=== PATIENT | female | born 1985 | race American Indian/Alaskan Native ===

== ENCOUNTER 2021-08-03 06:45 | Day surgery (SDC) | payer OTHER ==
[2021-08-02 12:22] LABS: Hematocrit 41.2 % (30.3-42.9); Hemoglobin 13.2 gm/dl (10.1-14.3); Mean Corpuscular HGB Conc 32 % (30-34); Mean Corpuscular Volume 88 fl (79-97); Platelet Count 272 K/mm3 (140-440); Red Blood Count 4.69 M/mm3 (3.65-5.03); Red Cell Distribution Width 14.2 % (13.2-15.2)
[2021-08-02 12:47] LABS: Alanine Aminotransferase 28 units/L (7-56); Albumin 4.1 g/dL (3.9-5); Blood Urea Nitrogen 10 mg/dL (7-17); Calcium 9.6 mg/dL (8.4-10.2); Hemolysis Index 2
[2021-08-02 12:49] LABS: BUN/Creatinine Ratio 17
--- NOTE | 2021-08-02 12:56 | Anesthesia Consultation ---
Anesthesia Consult and Med Hx Date of service: 08/03/21 - Airway Anesthetic Teeth Evaluation: Good ROM Head & Neck: Adequate Mental/Hyoid Distance: Adequate Mallampati Class: Class II Intubation Access Assessment: Good - Pre-Operative Health Status ASA Pre-Surgery Classification: ASA1 Proposed Anesthetic Plan: General - Pulmonary Hx Smoking: No Hx Sleep Apnea: No (ERIN PRE SCREEN LOW RISK) - Cardiovascular System Hx Hypertension: No - Central Nervous System Hx Psychiatric Problems: No - Gastrointestinal Hx Gastroesophageal Reflux Disease: No - Hematic Hx Anemia: No Hx Sickle Cell Disease: No - Other Systems Hx Cancer: No Hx Obesity: Yes
[~2021-08-03 06:45] MED LIST: ACETAMINOPHEN 500 MG TAB PO NR; CELECOXIB 200 MG CAP PO NR; GABAPENTIN 300 MG CAP PO NR; LACTATED RINGERS 1,000 ML IV SCH; MAGNESIUM OXIDE 400 MG TAB PO NR; MIDAZOLAM 2 MG/2 ML INJ IV NR; WATER FOR IRRIG STERILE 2000 ML IR ONE
[2021-08-03] MEDS ORDERED: ACETAMINOPHEN 325 MG/10.15 ML ORAL LIQD UNIT DOSE ONE (07:40)
[2021-08-03] MEDS ORDERED: GABAPENTIN 500 MG/10 ML ORAL LIQD ONE (07:41)
[2021-08-03] MEDS ORDERED: ONDANSETRON 4 MG/2 ML INJ IV PRN (07:42)
[2021-08-03] MEDS ORDERED: HYDROmorphone 1 MG/1 ML INJ IV PRN ×2 (07:42)
--- NOTE | 2021-08-03 07:42 | Anesthesia Day of Surgery ---
Anesthesia Day of Surgery - Day of Surgery Patient Examined: Yes Patient H&P Reviewed: Yes Patient is NPO: Yes
[2021-08-03] MEDS ORDERED: ceFAZolin/Water 2 GM/20 ML 2 GM/20 ML SYRINGE IV ONE (07:59)
[2021-08-03] MEDS ORDERED: ACETAMINOPHEN 325 MG/10.15 ML ORAL LIQD UNIT DOSE PO NR (08:00)
[2021-08-03] MEDS ORDERED: GABAPENTIN 500 MG/10 ML ORAL LIQD PO SCH (08:00)
[2021-08-03] MEDS ORDERED: HYDROmorphone 1 MG/1 ML INJ ONE (08:53)
[2021-08-03] MEDS ORDERED: LIDOCAINE MPF (2%) 20 MG/1 ML VIAL 5 ML ONE (08:53)
[2021-08-03] MEDS ORDERED: ONDANSETRON 4 MG/2 ML INJ ONE ×2 (08:53→11:35)
[2021-08-03] MEDS ORDERED: dexAMETHasone 20 MG/5 ML VIAL ONE (08:53)
[2021-08-03] MEDS ORDERED: propofoL 200 MG/20 ML VIAL IV ONE (08:54)
[2021-08-03] MEDS ORDERED: ceFAZolin/Water 2 GM/20 ML 2 GM/20 ML SYRINGE IV NR (09:00)
[2021-08-03] MEDS ORDERED: SODIUM CHLORIDE 0.9% 250ML 250 ML ONE (09:22)
[2021-08-03] MEDS ORDERED: NEOMY 40 MG/POLYMYXIN B 200,000 UNITS/ML (GU) AMPULE IR ONE (09:23)
[2021-08-03] MEDS ORDERED: VASOPRESSIN 20 UNIT/1 ML INJ ONE (09:23)
--- NOTE | 2021-08-03 10:18 | Short Stay Summary ---
Short Stay Documentation Date of service: 08/03/21 - History H&P: obtained from office - Allergies and Medications Current Medications: Allergies No Known Allergies Allergy (Verified 07/28/21 09:22) Home Medications Medication Instructions Recorded Confirmed Last Taken Type Control Pills 1 tab PO DAILY 07/28/21 08/03/21 08/03/21 06:02 History Active Medications Acetaminophen (Acetaminophen 325 Mg/10.15 Ml Oral Liqd Unit Dose) 975 mg PO PREOP NR Stop: 08/03/21 20:00 Last Admin: 08/03/21 07:42 Dose: 975 mg Celecoxib (Celecoxib 200 Mg Cap) 400 mg PO PREOP NR Stop: 08/03/21 20:00 Gabapentin (Gabapentin 500 Mg/10 Ml Oral Liqd) 300 mg PO PREOP MERRITT Stop: 08/03/21 12:00 Last Admin: 08/03/21 07:42 Dose: 300 mg Hydromorphone HCl (Hydromorphone 1 Mg/1 Ml Inj) 0.25 mg IV Q10MIN PRN PRN Reason: Pain, Moderate (4-6) Stop: 08/03/21 20:00 Hydromorphone HCl (Hydromorphone 1 Mg/1 Ml Inj) 0.5 mg IV Q10MIN PRN PRN Reason: Pain , Severe (7-10) Stop: 08/03/21 20:00 Lactated Ringer's (Lactated Ringers) 1,000 mls @ 125 mls/hr IV DIRECT MERRITT Last Admin: 08/03/21 07:30 Dose: 125 mls/hr Magnesium Oxide (Magnesium Oxide 400 Mg Tab) 400 mg PO ONCE NR Stop: 08/03/21 20:00 Midazolam HCl (Midazolam 2 Mg/2 Ml Inj) 2 mg IV PREOP NR Stop: 08/03/21 23:59 Last Admin: 08/03/21 08:31 Dose: 2 mg - Brief post op/procedure progress note Date of procedure: 08/03/21 Pre-op diagnosis: manny Post-op diagnosis: same Procedure: cysto, sling (TVT) Anesthesia: GETA Surgeon: SHAWN CARRION Estimated blood loss: minimal Pathology: none Specimen disposition: to lab Condition: stable - Hospital course Hospital course: bactrim & jessica on chart - Disposition Condition at discharge: Stable Disposition: 01 HOME / SELF CARE / HOMELESS Short Stay Discharge Plan Follow up with: JASMEET DOS SANTOS [Other] - 7 Days
--- NOTE | 2021-08-03 11:42 | Operative Report ---
DATE OF SURGERY: 08/03/2021 PREOPERATIVE DIAGNOSIS: Stress urinary incontinence. POSTOPERATIVE DIAGNOSIS: Stress urinary incontinence. PROCEDURES: Cystoscopy, pubovaginal sling (TVT). SURGEON: Oskar Morales MD ANESTHESIA: General. ESTIMATED BLOOD LOSS: Minimal. FLUIDS: Crystalloid. COMPLICATIONS: No complications. INDICATIONS: This patient is a 36-year-old female seen in the office for persistent stress urinary incontinence for 2 years. The patient has 2 kids delivered vaginally. She wears 4 pads a day, Kegel's, trial of several medications including Ditropan, Myrbetriq, and Gemtesa, continued to have incontinence. Urodynamic testing, peak flow 22 mL a second with stress incontinence and muscle weakness. Discussed options, risks, benefits, complications were explained. The patient agreed to proceed with surgical intervention. DESCRIPTION OF PROCEDURE: The patient was taken to the operative suite, placed in a supine position. After adequate general anesthesia, she was then placed in the dorsal lithotomy position, prepped and draped in a sterile fashion. She was placed in the dorsal lithotomy position, did not have a significant cystocele. Quinonez catheter was placed. Karmen-colored urine returned, midline anterior vaginal wall incision was made, lateral flaps were created. The finger dissection posteriorly the pubic rami up to the rectus fascia could be appreciated. Then, using the TVT tape and a trocar, the tape was brought from the vaginal area onto the suprapubic area, a small incision was made bilaterally to allow the trocar to advance into the suprapubic area. Cystoscopy was performed. No bladder injury could be appreciated. With gentle tension, the TVT tape was deployed. Redundant tape was cut suprapubically. The 2-0 Vicryl suture was used on the suprapubic area. Redundant vaginal wall was excised and vaginal wall was closed with a 2-0 Vicryl in a running fashion. Adequate hemostasis was achieved. Vaginal packing was placed. She was extubated and taken to recovery room. She will go home with Quinonez catheter and follow up in the office. TID: [id number] RECEIPT: [id number] [facility]/PRE/IQB
[2021-08-03] MEDS ORDERED: WATER FOR IRRIG STERILE 2000 ML IR ONE (15:26)
--- NOTE | 2021-08-03 17:48 | Post Anesthesia Evaluation ---
- Post Anesthesia Evaluation Patient Participated: Yes Airway Patent: Yes Stable Respiratory Function: Yes Nausea/Vomiting: No Temp > 96.8F: Yes Pain Manageable: Yes Adequeate Hydration: Yes Anesthesia Complications: No Block Receding Appropriately: Not Applicable Patient on Ventilator: No
[2021-08-03 17:49] VITALS: BP 129/78
== END 2021-08-03 12:00 | disposition home or self-care (01) ==
LOC: OR 06:45
PROVIDERS: ATTEND Urology
DX: N39.3 Stress incontinence (female) (male) (principal); Z20.822 Contact with and (suspected) exposure to COVID-19; E66.9 Obesity, unspecified; Z79.899 Other long term (current) drug therapy; Z98.890 Other specified postprocedural states; Z68.32 Body mass index [BMI] 32.0-32.9, adult
CPT/HCPCS: 36415; 57288; 80053; 84703; 85027; C1771; J0690; J1100; J1170; J2250; J2405; J2704; J3490; J7050; J7120; U0003